=== PATIENT | female | born 1980 | race Caucasian/White ===

== ENCOUNTER 2020-10-01 00:25 | Emergency (ER) | payer OTHER ==
[2020-10-01] MEDS ORDERED: MACROBID 100 M100 M1 PO (02:42)
== END 2020-10-01 02:49 | disposition home or self-care (01) ==
LOC: ER1 00:25
DX: O99.891 Other specified diseases and conditions complicating pregnancy (principal); M25.512 Pain in left shoulder; R82.71 Bacteriuria; Z3A.31 31 weeks gestation of pregnancy
CPT/HCPCS: 73030; 81001; 93005; 99284

== ENCOUNTER 2020-10-14 16:43 | Outpatient (CLI) | payer OTHER ==
[~2020-10-14 16:43] MED LIST: MACROBID 100 M100 M1 PO
== END 2020-10-14 19:45 | disposition home or self-care (01) ==
LOC: GENOP 16:43
DX: O26.893 Other specified pregnancy related conditions, third trimester (principal); R51.9 Headache, unspecified; R03.0 Elevated blood-pressure reading, without diagnosis of hypertension; Z3A.36 36 weeks gestation of pregnancy
CPT/HCPCS: 81001; G0463

== ENCOUNTER 2020-11-06 16:28 | Inpatient (IN) | payer OTHER ==
[~2020-11-06] VITALS: Ht 170.2 cm; Wt 123.4 kg
[2020-11-06 17:03] LABS: HEMOGLOBIN 12.8 gm/dl (12.3-15.3); RED BLOOD COUNT 4.17 M/UL (4.00-5.10); WHITE BLOOD COUNT 13.8 K/UL (4.5-11.0)
[2020-11-06 18:28] LABS: BUN/CREATININE RATIO 11 (0-10)
[2020-11-06] MEDS ORDERED: CARDIZEM120 MG PO (18:31)
[2020-11-06] MEDS ORDERED: PRENATAL VITAM1 EAC6 PO (18:33)
[2020-11-06] MEDS ORDERED: VISTARIL25 MG PO (18:33)
[2020-11-06] MEDS ORDERED: TYLENOL325 M1 PO (18:34)
[2020-11-07] MEDS ORDERED: COLACE 100MG C100 MG PO (20:36)
[2020-11-07] MEDS ORDERED: HYDROCODON-ACE1 EAC6 PO (20:36)
[2020-11-07] MEDS ORDERED: IBUPROFEN600 MG PO (20:36)
[2020-11-08 05:51] LABS: HEMOGLOBIN 11.1 gm/dl (12.3-15.3)
[2020-11-10] MEDS ORDERED: TRANDATE 300 M300 MG PO (08:46)
== END 2020-11-10 14:37 | disposition home or self-care (01) | DRG 788 ==
LOC: GENOP 16:28 → OB 16:42
PROVIDERS: Obstetrics & Gynecology; ADMIT Obstetrics & Gynecology
PROC: 0U7C7ZZ Dilation of Cervix, Via Natural or Artificial Opening (ICD-10-PCS; 2020-11-06)
PROC: 10907ZC Drainage of Amniotic Fluid, Therapeutic from Products of Conception, Via Natural or Artificial Opening (ICD-10-PCS; 2020-11-07)
PROC: 3E033VJ Introduction of Other Hormone into Peripheral Vein, Percutaneous Approach (ICD-10-PCS; 2020-11-07)
PROC: 10D00Z1 Extraction of Products of Conception, Low, Open Approach (ICD-10-PCS; principal; 2020-11-07 21:18)
DX: O11.4 Pre-existing hypertension with pre-eclampsia, complicating childbirth (principal); Z3A.36 36 weeks gestation of pregnancy; Z37.0 Single live birth; O99.214 Obesity complicating childbirth; E66.01 Morbid (severe) obesity due to excess calories; O99.344 Other mental disorders complicating childbirth; F41.9 Anxiety disorder, unspecified; O62.1 Secondary uterine inertia; Z28.21 Immunization not carried out because of patient refusal
CPT/HCPCS: 36415; 80053; 81001; 82570; 82800; 83615; 83735; 84156; 84550; 85014; 85018; 85025; C9113; J0360; J0610; J0690; J1170; J1200; J1650; J1885; J2001; J2250; J2274; J2405; J2590; J2795; J3010; J3475; J7120; U0002

== ENCOUNTER 2021-04-24 13:34 | Emergency (ER) | payer OTHER ==
[~2021-04-24 13:34] MED LIST changes: +COLACE 100MG C100 MG PO; +DILTIAZEM 24HR120 M1 PO; +HYDROCODON-ACE1 EAC6 PO; +IBUPROFEN600 MG PO; +PRENATAL VITAM1 EAC6 PO; +TRANDATE 300 M300 MG PO; +TYLENOL325 M1 PO; +VISTARIL25 MG PO
[2021-04-24 14:41] LABS: HEMOGLOBIN 14.5 gm/dl (12.3-15.3); RED BLOOD COUNT 4.76 M/UL (4.00-5.10); WHITE BLOOD COUNT 16.1 K/UL (4.5-11.0)
[2021-04-24 14:50] LABS: BUN/CREATININE RATIO 8 (0-10)
[2021-04-24 15:54] LABS: ADENOVIRUS F 40/41 Not Detected (Negative); ASTROVIRUS Not Detected (Negative); CAMPYLOBACTER Not Detected (Negative); CRYPTOSPORIDIUM Not Detected (Negative); E.COLI 0157 Not Detected (Negative); ENTAMOEBA HISTOLYTICA Not Detected (Negative); ENTEROAGGREGATIVE E.COLI (EAEC Not Detected (Negative); ENTEROPATHOGENIC E.COLI (EPEC) Not Detected (Negative); ENTEROTOXIGENIC E.COLI (ETEC) Not Detected (Negative); GIARDIA LAMBLIA Not Detected (Negative); NOROVIRUS GI/GII Not Detected (Negative); PLESIOMONAS SHIGELLOIDES Not Detected (Negative); ROTOVIRUS A Not Detected (Negative); SALMONELLA Not Detected (Negative); SAPOVIRUS Not Detected (Negative); SHIG/ENTEROINVAS.ECOLI (EIEC) Not Detected (Negative); SHIGA-LIK TOX.PRO.E.COLI (STEC Not Detected (Negative); VIBRIO Not Detected (Negative); VIBRIO CHOLERAE Not Detected (Negative); YERSINIA ENTEROCOLITICA Not Detected (Negative)
[2021-04-24 17:16] LABS: CLOSTRIDIUM DIFFICILE TOX A/B DETECTED (Negative)
[2021-04-24] MEDS ORDERED: VANCOCIN 125 M125 MG PO (17:34)
[2021-04-24] MEDS ORDERED: PROBIOTIC & AC1 EACH PO (17:34)
[2021-04-24] MEDS ORDERED: ZOFRAN4 MG PO (17:34)
[2021-04-25] MEDS ORDERED: ONDANSETRON HCL4 MG PO (17:13)
[2021-04-25] MEDS ORDERED: FLONASE 0.05% N16 GM (17:13)
[2021-04-25] MEDS ORDERED: KLONOPIN0.5 MG PO (17:13)
[2021-04-25] MEDS ORDERED: PROBIOTIC1 EAC1 PO (17:14)
[2021-04-25] MEDS ORDERED: IBU800 MG PO (17:14)
[2021-04-26] MEDS ORDERED: BENTYL 10MG CAP10 MG PO (13:49)
[2021-04-26] MEDS ORDERED: VANCOMYCIN HCL250 MG PO (13:49)
== END 2021-04-24 19:07 | disposition home or self-care (01) ==
LOC: ER1 13:34
PROVIDERS: Physician Assistant
DX: A04.72 Enterocolitis due to Clostridium difficile, not specified as recurrent (principal); I48.91 Unspecified atrial fibrillation; Z20.822 Contact with and (suspected) exposure to COVID-19; F17.210 Nicotine dependence, cigarettes, uncomplicated
CPT/HCPCS: 80053; 81001; 83690; 84703; 85025; 87086; 87507; 96374; 96375; 96376; 99284; J2270; J2405; J7030; Q9967; U0002

== ENCOUNTER 2021-04-25 15:05 | Observation (INO) | payer OTHER ==
[~2021-04-25] VITALS: Ht 165.1 cm; Wt 99.8 kg
[~2021-04-25 15:05] MED LIST changes: +PROBIOTIC & AC1 EACH PO; +VANCOCIN 125 M125 MG PO; +ZOFRAN4 MG PO
[2021-04-25 16:24] LABS: HEMOGLOBIN 13.3 gm/dl (12.3-15.3)
[2021-04-25 16:28] LABS: RED BLOOD COUNT 4.35 M/UL (4.00-5.10); WHITE BLOOD COUNT 15.7 K/UL (4.5-11.0)
[2021-04-25 16:45] LABS: BUN/CREATININE RATIO 6 (0-10)
[2021-04-25] MEDS ORDERED: FLONASE 0.05% N16 GM (17:13)
[2021-04-25] MEDS ORDERED: ONDANSETRON HCL4 MG PO (17:13)
[2021-04-25] MEDS ORDERED: KLONOPIN0.5 MG PO (17:13)
[2021-04-25] MEDS ORDERED: IBU800 MG PO (17:14)
[2021-04-25] MEDS ORDERED: PROBIOTIC1 EAC1 PO (17:14)
[2021-04-26 06:15] LABS: HEMOGLOBIN 12.5 gm/dl (12.3-15.3); RED BLOOD COUNT 4.2 M/UL (4.00-5.10)
[2021-04-26 06:47] LABS: BUN/CREATININE RATIO 4 (0-10)
[2021-04-26] MEDS ORDERED: VANCOMYCIN HCL250 MG PO (13:49)
[2021-04-26] MEDS ORDERED: BENTYL 10MG CAP10 MG PO (13:49)
== END 2021-04-26 16:24 | disposition home or self-care (01) ==
LOC: ER1 15:05 → MED SURG 4 16:21 → CDU 16:21 → MED SURG 4 19:09
PROVIDERS: Emergency Medicine; Physician Assistant Medical; ADMIT Internal Medicine
DX: A04.72 Enterocolitis due to Clostridium difficile, not specified as recurrent (principal); N39.0 Urinary tract infection, site not specified; F41.9 Anxiety disorder, unspecified; F17.210 Nicotine dependence, cigarettes, uncomplicated; I10 Essential (primary) hypertension; Z20.822 Contact with and (suspected) exposure to COVID-19; Z79.899 Other long term (current) drug therapy
CPT/HCPCS: 36415; 80048; 80053; 81001; 83605; 83690; 83735; 85025; 85027; 87040; 87086; 96374; 96375; 99284; G0378; J0696; J2270; J2405; U0002